=== PATIENT | female | born 1995 | race Caucasian/White ===

== ENCOUNTER 2019-02-16 02:48 | Emergency (ER) | payer BC, OTHER ==
--- NOTE | 2019-02-16 03:56 | PDOC ---
History of Present Illness - General Chief Complaint: Nausea Stated Complaint: ABD PAIN Time Seen by Provider: 02/16/19 03:55 History Source: Patient - History of Present Illness Initial Comments: 02/16/19 04:33 23 year old female with bloating, nausea, hard BMS and abdominal pain x 3 days. patient was seen by PCP and was started on omeprezole and zofran PRN. reports hard BM yesterday after taking a laxative. denies fever/ chills, diarrhea, urinary symptoms, flank pain LMP 2 weeks ago no pmhx 02/16/19 05:11 Past History - Past Medical History Allergies/Adverse Reactions: Allergies Allergy/AdvReac Type Severity Reaction Status Date / Time No Known Allergies Allergy Verified 02/16/19 04:11 Home Medications: Ambulatory Orders Polyethylene Glycol 3350 [Miralax (For Daily Use) -] 17 gm PO ONCE #1 bottle COPD: No - Psycho Social/Smoking Cessation Hx Smoking History: Never smoked Hx Alcohol Use: No Drug/Substance Use Hx: No Substance Use Type: None Review of Systems - Review of Systems Able to Perform ROS?: Yes Is the patient limited Russian proficient: No Constitutional: No: Symptoms Reported, See HPI, Chills, Diaphoresis, Fever, Loss of Appetite, Malaise, Night Sweats, Weakness, Weight Stable, Unintentional Wgt. Loss, Unexplained wgt Loss, Other ABD/GI: Yes: Constipated, Nausea, Abdominal cramping : No: Symptoms Reported, See HPI, Burning, Dysuria, Discharge, Frequency, Flank Pain, Hematuria, Incontinence, Pain, Urgency, Testicular Mass, Testicular Swelling, Lesions, Testicular Pain, Other Musculoskeletal: No: Symptoms Reported, See HPI, Back Pain, Gout, Joint Pain, Joint Swelling, Muscle Pain, Muscle Weakness, Neck Pain, Joint Stiffness, Other *Physical Exam - Vital Signs 02/16/19 04:43 Last Vital Signs Temp Pulse Resp BP Pulse Ox 98.0 F 73 18 122/65 98 02/16/19 03:00 02/16/19 03:00 02/16/19 03:00 02/16/19 03:00 02/16/19 03:00 - Physical Exam General Appearance: Yes: Appropriately Dressed Respiratory/Chest: positive: Lungs Clear, Normal Breath Sounds Cardiovascular: positive: Regular Rhythm, Regular Rate Gastrointestinal/Abdominal: positive: Normal Bowel Sounds, Tender (LLQ), Soft Musculoskeletal: positive: Normal Inspection. negative: CVA Tenderness Extremity: positive: Normal Capillary Refill, Normal Inspection, Normal Range of Motion Integumentary: positive: Normal Color, Dry, Warm Neurologic: positive: Fully Oriented, Alert, Normal Mood/Affect ED Progress Note - Progress Note Progress Note: 02/16/19 04:46 A: abdominal pain; bloating; constipation P: maalox zofran abdominal xray Medical Decision Making - Medical Decision Making 02/16/19 05:12 patient now has no LLQ pain. likely gas? will d/c home with maalox Discharge - Discharge Information Problems reviewed: Yes Clinical Impression/Diagnosis: Constipation Qualifiers: Constipation type: unspecified constipation type Qualified Code(s): K59.00 - Constipation, unspecified Condition: Fair Disposition: HOME - Additional Discharge Information Prescriptions: Polyethylene Glycol 3350 [Miralax (For Daily Use) -] 17 gm PO ONCE #1 bottle - Follow up/Referral - Patient Discharge Instructions Patient Printed Discharge Instructions: Constipation Additional Instructions: drink plenty of fluids take miralax as prescribed follow up with your doctor as soon as possible. - Post Discharge Activity Work/Back to School Note: Back to School
--- NOTE | 2019-02-16 04:10 | PDOC ---
Medical Decision Making - Medical Decision Making 02/16/19 04:10 Patient seen by the advanced practice provider under my direct supervision. Ancillary testing reviewed as necessary. I agree with plan as outlined by the advanced practice provider. Discharge - Discharge Information Problems reviewed: Yes Clinical Impression/Diagnosis: Constipation Qualifiers: Constipation type: unspecified constipation type Qualified Code(s): K59.00 - Constipation, unspecified Condition: Fair Disposition: HOME - Additional Discharge Information Prescriptions: Polyethylene Glycol 3350 [Miralax (For Daily Use) -] 17 gm PO ONCE #1 bottle - Follow up/Referral - Patient Discharge Instructions Patient Printed Discharge Instructions: Constipation Additional Instructions: drink plenty of fluids take miralax as prescribed follow up with your doctor as soon as possible. - Post Discharge Activity Work/Back to School Note: Back to School
[2019-02-16] MEDS ORDERED: MAG HYDROX/AL HYDROX/SIMETH 30 ML UNIT-DOSE CUP PO ONE (04:14)
[2019-02-16] MEDS ORDERED: ONDANSETRON *ODT* 4 MG TABLET SL ONE (04:14)
[2019-02-16] MEDS ORDERED: ONDANSETRON *ODT* 4 MG TABLET ONE (04:24)
[2019-02-16] MEDS ORDERED: MAG HYDROX/AL HYDROX/SIMETH 30 ML UNIT-DOSE CUP ONE (04:25)
[2019-02-16 04:46] VITALS: BP 122/65; PULSE 73; TEMP 98; BMI 25.4
[2019-02-16 04:47] LABS: EPI CELLS 2.1 /HPF (0-5/HPF); HYALINE CASTS 1 /lpf (0-8); PH,URINE 5.5 (5.0-8.0); URINE APPEARANCE CLEAR; URINE BACTERIA 26.7 /hpf (NEGATIVE); URINE BILIRUBIN NEGATIVE (NEGATIVE); URINE COLOR YELLOW; URINE GLUCOSE (UA) NEGATIVE (NEGATIVE); URINE KETONE NEGATIVE (NEGATIVE); URINE LEUK ESTERASE NEGATIVE (NEGATIVE); URINE NITRITE NEGATIVE (NEGATIVE); URINE PROTEIN 2+ (NEGATIVE); URINE RBC 2 /hpf (0-4); URINE UROBILINOGEN 0.2 mg/dL (0.2-1.0); URINE WBC 3 /hpf (0-5)
[2019-02-16] MEDS ORDERED: ACETAMINOPHEN 325 MG TABLET (FP) PO ONE (05:13)
[2019-02-16] MEDS ORDERED: ACETAMINOPHEN 325 MG TABLET (FP) ONE (05:15)
== END 2019-02-16 06:28 | disposition home or self-care (01) ==
LOC: JER 02:48
DX: K59.00 Constipation, unspecified (principal)
CPT/HCPCS: 74018-TC-FY; 81003; 84703; 99282-25; Q0162